=== PATIENT | male | born 1990 | race Caucasian/White ===

== ENCOUNTER → 2018-06-19 | Outpatient (CLI) | payer BC ==
--- NOTE | 2018-06-19 08:21 | XR ---
EXAMINATION TYPE: XR chest 2V DATE OF EXAM: 06/19/2018 COMPARISON: NONE HISTORY: Chest pain TECHNIQUE: Frontal and lateral views of the chest are obtained. FINDINGS: There is no focal air space opacity. No evidence for pneumothorax. No pleural effusion. The cardiac silhouette size is within normal limits. The osseous structures are grossly intact. IMPRESSION: 1. No acute cardiopulmonary process.
[2018-06-19 08:39] LABS: Basophils # (A) 0.1 k/uL (0-0.2); Basophils % (A) 1 %; Eosinophils # (A) 0.2 k/uL (0-0.7); Eosinophils % (A) 3 %; HCT 49.9 % (39.0-53.0); HGB 17.1 gm/dL (13.0-17.5); Lymphocytes # (A) 1.4 k/uL (1.0-4.8); Lymphocytes % (A) 28 %; MCH 31.6 pg (25.0-35.0); MCHC 34.3 g/dL (31.0-37.0); MCV 91.9 fL (80.0-100.0); Mean Platelet Volume 6.7; Monocytes # (A) 0.4 k/uL (0-1.0); Monocytes % (A) 7 %; Neutrophils % (A) 58 %; Platelet Count 211 k/uL (150-450); RBC 5.42 m/uL (4.30-5.90); WBC 5.2 k/uL (3.8-10.6)
[2018-06-19 18:16] LABS: Hepatitis A Antibody IgM Non-Reactive (Non-Reactive); Hepatitis B Core IgM Non-Reactive (Non-Reactive)
== END | disposition home or self-care (01) ==
LOC: LABWHC1 07:21
PROVIDERS: ATTEND Dermatology
DX: L40.0 Psoriasis vulgaris (principal)
CPT/HCPCS: 36415; 71046; 80061; 80074; 82565; 82947; 83615; 84450; 84460; 84520; 85025

== ENCOUNTER 2018-11-03 11:25 | Emergency (ER) | payer BC ==
[2018-11-03 11:35] VITALS: RESP 18
[2018-11-03] MEDS ORDERED: SODIUM CHLORIDE 0.9% 1,000 ML IV STA (12:20)
[2018-11-03] MEDS ORDERED: ONDANSETRON 4 MG/2 ML VIAL IVP STA (12:20)
[2018-11-03] MEDS ORDERED: KETOROLAC 30 MG/ML 1 ML VIAL IVP STA (12:20)
--- NOTE | 2018-11-03 12:31 | ED ---
Abdominal Pain HPI - General Chief Complaint: Abdominal Pain Stated Complaint: Possible appendicitis Time Seen by Provider: 11/03/18 11:48 Source: patient, RN notes reviewed, old records reviewed Mode of arrival: ambulatory Limitations: no limitations - History of Present Illness Initial Comments: 20-year-old male since into ER for complaints of right lower abdominal pain times one week. Sent in from [facility] to rule out appendicitis. Patient reports phuc e associated nausea. Patient reports that he went to see [facility] today because initially thought that his symptoms related to her hernia. He denies any dysuria. He does report some nausea. Normal stools and last bowel movement was this morning. Patient denies any fevers or chills. - Related Data Home Medications Medication Instructions Recorded Confirmed Secukinumab [Cosentyx Pen] 300 mg SQ QMONTH 11/03/18 11/03/18 Allergies Allergy/AdvReac Type Severity Reaction Status Date / Time No Known Allergies Allergy Verified 11/03/18 12:27 Review of Systems ROS Statement: Those systems with pertinent positive or pertinent negative responses have been documented in the HPI. ROS Other: All systems not noted in ROS Statement are negative. Past Medical History Additional Past Medical History / Comment(s): psoriasis History of Any Multi-Drug Resistant Organisms: None Reported Past Surgical History: Orthopedic Surgery Additional Past Surgical History / Comment(s): nasal surgery Past Psychological History: No Psychological Hx Reported Smoking Status: Former smoker Past Alcohol Use History: Occasional Past Drug Use History: None Reported General Exam - General Exam Comments Initial Comments: This is a 28-year-old male. Alert and oriented 3. No distress. Limitations: no limitations General appearance: alert, in no apparent distress Head exam: Present: atraumatic, normocephalic, normal inspection Eye exam: Present: normal appearance, PERRL, EOMI. Absent: scleral icterus, conjunctival injection, periorbital swelling ENT exam: Present: normal exam, mucous membranes moist Neck exam: Present: normal inspection. Absent: tenderness, meningismus, lymphadenopathy Respiratory exam: Present: normal lung sounds bilaterally. Absent: respiratory distress, wheezes, rales, rhonchi, stridor Cardiovascular Exam: Present: regular rate, normal rhythm, normal heart sounds. Absent: systolic murmur, diastolic murmur, rubs, gallop, clicks GI/Abdominal exam: Present: soft, tenderness ( minimal Right lower quadrant tenderness), normal bowel sounds. Absent: distended, guarding, rebound, rigid Extremities exam: Present: normal inspection, full ROM, normal capillary refill. Absent: tenderness, pedal edema, joint swelling, calf tenderness Back exam: Present: normal inspection Neurological exam: Present: alert, oriented X3, CN II-XII intact Psychiatric exam: Present: normal affect, normal mood Course Vital Signs 11/03/18 11:33 Temperature 97.5 F L Pulse Rate 74 Respiratory 18 Rate Blood Pressure 128/83 O2 Sat by Pulse 98 Oximetry Medical Decision Making - Medical Decision Making 28-year-old male presents emergency department today with complaints of right lower quadrant abdominal pain. He reports symptoms have been progressive for the past week. He was sent in by [facility] rule out appendicitis. He reports nausea. He thought his symptoms were initially related to her hernia. At this time Patient has no palpable hernia on exam. He does have some right lower quadrant tenderness at McBurney's point. Patient's labwork was reviewed. Evidence of elevated liver enzymes most likely the setting of fatty liver diseas e. He has no right upper quadrant tenderness. Patient ECC and does show evidence of appendicolith no evidence of fat stranding. Vital signs are within normal limits at this time. I discussed with normal labs and normal vital signs Signs of periappendiceal fat stranding unlikely to be acute appendicitis. Discussed some signs of mesenteric adenitis on CT exam and discussed his elevated liver enzymes. Patient was reevaluated after receiving IV fluids and Toradol. He reports his pain is improved. Everyone she has no rebound tenderness or guarding. Patient informed of these results and discuss the symptoms are likely related to mesenteric adenitis as well as possibility of abdominal wall muscle strain. Discussed strict return parameters including fevers chills nausea or vomiting. Discussed the Patient have close follow-up with his PCP. All questions were answered and return parameters were discussed. - Lab Data Result diagrams: 11/03/18 11:48 11/03/18 11:48 Lab Results 11/03/18 11/03/18 11/03/18 Range/Units 11:48 11:48 11:48 WBC 5.1 (3.8-10.6) k/uL RBC 5.31 (4.30-5.90) m/uL Hgb 16.4 (13.0-17.5) gm/dL Hct 47.9 (39.0-53.0) % MCV 90.2 (80.0-100.0) fL MCH 30.9 (25.0-35.0) pg MCHC 34.2 (31.0-37.0) g/dL RDW 13.1 (11.5-15.5) % Plt Count 218 (150-450) k/uL Neutrophils % 63 % Lymphocytes % 24 % Monocytes % 7 % Eosinophils % 3 % Basophils % 1 % Neutrophils # 3.2 (1.3-7.7) k/uL Lymphocytes # 1.2 (1.0-4.8) k/uL Monocytes # 0.4 (0-1.0) k/uL Eosinophils # 0.2 (0-0.7) k/uL Basophils # 0.0 (0-0.2) k/uL Sodium 137 (137-145) mmol/L Potassium 4.4 (3.5-5.1) mmol/L Chloride 104 (98-107) mmol/L Carbon Dioxide 27 (22-30) mmol/L Anion Gap 6 mmol/L BUN 17 (9-20) mg/dL Creatinine 1.12 (0.66-1.25) mg/dL Est GFR (CKD-EPI)AfAm >90 (>60 ml/min/1.73 sqM) Est GFR (CKD-EPI)NonAf 89 (>60 ml/min/1.73 sqM) Glucose 90 (74-99) mg/dL Calcium 9.3 (8.4-10.2) mg/dL Total Bilirubin 0.8 (0.2-1.3) mg/dL AST 65 H (17-59) U/L ALT 152 H (21-72) U/L Alkaline Phosphatase 52 (38-126) U/L Total Protein 7.1 (6.3-8.2) g/dL Albumin 4.5 (3.5-5.0) g/dL Amylase 41 (30-110) U/L Lipase 65 (23-300) U/L Urine Color Light Yellow Urine Appearance Clear (Clear) Urine pH 5.5 (5.0-8.0) Ur Specific [place] 1.008 (1.001-1.035) Urine Protein Negative (Negative) Urine Glucose (UA) Negative (Negative) Urine Ketones Negative (Negative) Urine Blood Negative (Negative) Urine Nitrite Negative (Negative) Urine Bilirubin Negative (Negative) Urine Urobilinogen <2.0 (<2.0) mg/dL Ur Leukocyte Esterase Negative (Negative) - Radiology Data Radiology results: report reviewed Patient CT shows linear hyperdense material within the appendix could represent multiple smaller appendicoliths or prior ingested radiopaque material. However there is no periappendiceal fat stranding to suggest acute appendicitis. A few prominent right lower quadrant lymph nodes can be seen mesenteric adenitis. Hepatic steatosis and hepatis liniment was noted. No intrahepatic biliary ductal dilation. Liver is enlarged. No cholelithiasis noted. Disposition Clinical Impression: RLQ abdominal pain, Mesenteric adenitis Disposition: HOME SELF-CARE Condition: Good Instructions (If sedation given, give patient instructions): Abdominal Pain (ED), Mesenteric Adenitis (ED) Additional Instructions: Patient advised to follow-up with primary care physician within the next 1-2 days. Motrin and Tylenol for pain. Recommended using a stool softener to promote bowel movements for the next few days. Return to emergency department if any alarming signs or symptoms occur including worsening pain, Fevers, chills, nausea vomiting. Is patient prescribed a controlled substance at d/c from ED?: No Referrals: Philip Floyd MD [Primary Care Provider] - 1-2 days Time of Disposition: 14:01
[2018-11-03 12:37] LABS: Appearance,Urine Clear (Clear); Bilirubin,Urine Negative (Negative); Blood,Urine Negative (Negative); Color,Urine Light Yellow; Glucose,Urine (UA) Negative (Negative); Ketones,Urine Negative (Negative); Leukocyte Esterase,Urine Negative (Negative); Nitrite,Urine Negative (Negative); PH, Urine 5.5 (5.0-8.0); Protein,Urine Negative (Negative); Specific Gravity,Urine 1.008 (1.001-1.035); Urobilinogen,Urine <2.0 mg/dL (<2.0)
[2018-11-03 12:44] LABS: Basophils % (A) 1 %; Eosinophils # (A) 0.2 k/uL (0-0.7); Eosinophils % (A) 3 %; HCT 47.9 % (39.0-53.0); HGB 16.4 gm/dL (13.0-17.5); Lymphocytes # (A) 1.2 k/uL (1.0-4.8); Lymphocytes % (A) 24 %; MCH 30.9 pg (25.0-35.0); MCHC 34.2 g/dL (31.0-37.0); MCV 90.2 fL (80.0-100.0); Mean Platelet Volume 6.3; Monocytes # (A) 0.4 k/uL (0-1.0); Monocytes % (A) 7 %; Neutrophils # (A) 3.2 k/uL (1.3-7.7); Neutrophils % (A) 63 %; Platelet Count 218 k/uL (150-450); RBC 5.31 m/uL (4.30-5.90); RDW 13.1 % (11.5-15.5); WBC 5.1 k/uL (3.8-10.6)
[2018-11-03 12:48] LABS: ALT 152 U/L (21-72); AST 65 U/L (17-59); Albumin 4.5 g/dL (3.5-5.0); Alkaline Phosphatase 52 U/L (38-126); Amylase 41 U/L (30-110); Anion Gap 6 mmol/L; Blood Urea Nitrogen 17 mg/dL (9-20); Calcium 9.3 mg/dL (8.4-10.2); Carbon Dioxide 27 mmol/L (22-30); Chloride 104 mmol/L (98-107); Glucose 90 mg/dL (74-99); Lipase 65 U/L (23-300); Potassium 4.4 mmol/L (3.5-5.1); Sodium 137 mmol/L (137-145); Total Bilirubin 0.8 mg/dL (0.2-1.3); Total Protein 7.1 g/dL (6.3-8.2)
--- NOTE | 2018-11-03 13:36 | CT ---
EXAMINATION TYPE: CT abdomen pelvis w con DATE OF EXAM: 11/03/2018 COMPARISON: None HISTORY: RLQ pain CT DLP: 1911.5 mGycm Automated exposure control for dose reduction was used. TECHNIQUE: Helical acquisition of images was performed from the lung bases through the pelvis. CONTRAST: Performed without Oral Contrast and with IV Contrast, patient injected with 100 mL of Isovue 300. FINDINGS: LUNG BASES: No significant abnormality is appreciated. LIVER/GB: Hepatic parenchyma is diffusely hypoattenuated in comparison to that of the spleen, most co mmonly seen in hepatic steatosis. This finding limits evaluation for hepatic masses. No gross evidenc e of hepatic mass is seen. No intrahepatic biliary ductal dilatation. The liver is enlarged. No dorothea lithiasis. PANCREAS: No significant abnormality is seen. SPLEEN: The spleen is enlarged measuring 14.1 cm in craniocaudal dimension. ADRENALS: No significant abnormality is seen. KIDNEYS: There is a left prominent, Martín. Otherwise the kidneys are of symmetric enhancement. No hy dronephrosis. FREE AIR: No free air is visualized. REPRODUCTIVE ORGANS: No significant abnormality is seen URINARY BLADDER: No significant abnormality is seen. ADENOPATHY: No greater than 1 cm short axis lymph node within the abdomen or pelvis. Clustered right lower quadrant prominent lymph nodes are discussed below. OSSEOUS STRUCTURES: Mild degenerative changes of the spine are seen. BOWEL: The appendix is within normal limits of size and without periappendiceal fat stranding howeve r high density linear material is seen within the appendix as well as multiple foci of air. Clustered right lower quadrant lymph nodes on coronal series 202 image 51 through 54 measuring up to 8 mm. No dilated large or small bowel is seen. IMPRESSION: 1. LINEAR HYPERDENSE MATERIAL WITHIN THE APPENDIX COULD REPRESENT MULTIPLE SMALL APPENDICOLITHS OR NV IOR INGESTED RADIOPAQUE MATERIAL. HOWEVER THERE IS NO PERIAPPENDICEAL FAT STRANDING TO SUGGEST ACUTE APPENDICITIS. FEW PROMINENT RIGHT LOWER QUADRANT LYMPH NODES CAN BE SEEN IN MESENTERIC ADENITIS. 2. HEPATIC STEATOSIS. 3. HEPATOSPLENOMEGALY.
[2018-11-03 14:18] VITALS: BP 138/78; PULSE 61; TEMP 97.6
== END 2018-11-03 14:19 | disposition home or self-care (01) ==
LOC: EC 11:25
DX: I88.0 Nonspecific mesenteric lymphadenitis (principal); Z87.891 Personal history of nicotine dependence
CPT/HCPCS: 36415; 80053; 82150; 83690; 85025; 81003; 74177; 99284; 96374; 96375; 96361; J2405; J1885; Q9967

== ENCOUNTER 2019-10-12 11:51 | Emergency (ER) | payer BC, OTHER ==
[2019-10-12 11:58] VITALS: BP 128/75; PULSE 78; RESP 18; TEMP 98.1
[2019-10-12] MEDS ORDERED: LIDOCAINE 1% INJ 10MG/ML (20 ML MDV) SQ ONE (12:19)
--- NOTE | 2019-10-12 12:24 | ED ---
Wound/Laceration HPI - General Chief Complaint: Wound/Laceration Stated Complaint: [facility] - hand lac Time Seen by Provider: 10/12/19 12:09 Source: patient, RN notes reviewed Mode of arrival: ambulatory Limitations: no limitations - History of Present Illness Initial Comments: 29-year-old male presents emergency Department chief a laceration to his left hand. Patient states that he cut on tool at work. Patient states his last tetanus was just updated 2012. He has full range of motion of his left hand no paresthesias no decreased range of motion of his fifth digit. - Related Data Home Medications Medication Instructions Recorded Confirmed Secukinumab [Cosentyx Pen] 300 mg SQ QMONTH 11/03/18 11/03/18 Allergies Allergy/AdvReac Type Severity Reaction Status Date / Time No Known Allergies Allergy Verified 10/12/19 11:53 Review of Systems ROS Statement: Those systems with pertinent positive or pertinent negative responses have been documented in the HPI. ROS Other: All systems not noted in ROS Statement are negative. Past Medical History Additional Past Medical History / Comment(s): psoriasis History of Any Multi-Drug Resistant Organisms: MRSA Date of last positivie culture/infection: 2013 MDRO Source:: r thigh Past Surgical History: Orthopedic Surgery Additional Past Surgical History / Comment(s): nasal surgery Past Psychological History: No Psychological Hx Reported Smoking Status: Former smoker Past Alcohol Use History: Occasional Past Drug Use History: None Reported General Exam Limitations: no limitations General appearance: alert, in no apparent distress Head exam: Present: atraumatic, normocephalic, normal inspection Eye exam: Present: normal appearance, PERRL, EOMI. Absent: scleral icterus, conjunctival injection, periorbital swelling ENT exam: Present: normal exam, mucous membranes moist Neck exam: Present: normal inspection, full ROM. Absent: tenderness, meningismus, lymphadenopathy Respiratory exam: Present: normal lung sounds bilaterally. Absent: respiratory distress, wheezes, rales, rhonchi, stridor Cardiovascular Exam: Present: regular rate, normal rhythm, normal heart sounds. Absent: systolic murmur, diastolic murmur, rubs, gallop, clicks Extremities exam: Present: other (left hand medial aspect just proximal to the fifth digit there is a 3 cm laceration. Full range of motion of all digits neurovascular intact) Course Vital Signs 10/12/19 11:54 Temperature 98.1 F Pulse Rate 78 Respiratory 18 Rate Blood Pressure 128/75 O2 Sat by Pulse 100 Oximetry Procedures - Laceration Laceration #1 Consent Obtained: verbal consent Site: hand (Left) Size (cm): 3 Description: linear Depth: simple, single layer Anesthetic Used: lidocaine 1%, without epi Anesthesia Technique: local infiltration Amount (mls): 5 Pre-repair: wound explored, irrigated extensively, deep structures intact Type of Sutures: nylon Size of Sutures: 4-0 Number of Sutures: 5 Technique: simple, interrupted Patient Tolerated Procedure: well, no complications Medical Decision Making - Medical Decision Making Patient laceration was thoroughly cleaned, closed using sutures and no comp patients return parameters were discussed wound care instructions given. Disposition Clinical Impression: Laceration of left hand Disposition: HOME SELF-CARE Condition: Stable Instructions (If sedation given, give patient instructions): Laceration (ED), Care For Your Stitches (DC) Additional Instructions: Please return to the Emergency Department if symptoms worsen or any other concerns. Is patient prescribed a controlled substance at d/c from ED?: No Referrals: Philip Floyd MD [Primary Care Provider] - 1-2 days Time of Disposition: 12:40
[2019-10-12] MEDS ORDERED: DIPH,PERTUS(ACELL)TETVAC-LF 0.5 ML VIAL IM ONE (12:26)
== END 2019-10-12 13:41 | disposition home or self-care (01) ==
LOC: EC 11:51
DX: S61.412A Laceration without foreign body of left hand, initial encounter (principal); Z23 Encounter for immunization; Z87.891 Personal history of nicotine dependence; W27.8XXA Contact with other nonpowered hand tool, initial encounter; Y92.69 Other specified industrial and construction area as the place of occurrence of the external cause; Y99.0 Civilian activity done for income or pay
CPT/HCPCS: 90715; 99282; 12002; 90471; J2001

== ENCOUNTER → 2020-03-28 | Outpatient (CLI) | payer OTHER, BC | END | disposition home or self-care (01) | LOC: LABWHC1 10:01 | PROVIDERS: ATTEND Emergency Medicine | DX: Z20.828 Contact with and (suspected) exposure to other viral communicable diseases (principal) | CPT/HCPCS: U0003; C9803 ==

== ENCOUNTER → 2022-05-28 | Outpatient (CLI) | payer BC ==
--- NOTE | 2022-05-28 14:50 | US ---
EXAMINATION TYPE: US abdomen complete DATE OF EXAM: 05/28/2022 COMPARISON: CT CLINICAL HISTORY: R74.8 ABNORMAL LEVELS OF OTHER SERUM ENZYMES. Abnormal LFT's TECHNIQUE: Multiple sonographic images of the abdomen are obtained. FINDINGS: EXAM MEASUREMENTS: Liver Length: 17.7 cm. Normal less than 15.5 cm. Gallbladder Wall: 0.2 cm CBD: 0.2 cm Spleen: 14.5 cm. Normal less than 12.5 cm. Right Kidney: 12.6 x 4.2 x 4.9 cm Left Kidney: 13.3 x 5.1 x 4.2 cm ORE GRADER NOTES: Pancreas: wnl, tail obscured by overlying bowel gas Liver: Heterogeneous, difficult to penetrate, mildly enlarged. Gallbladder: wnl Evidence for sonographic Srinivasan's sign: No CBD: wnl Spleen: Enlarged Right Kidney: wnl Left Kidney: wnl Upper IVC: wnl Abd Aorta: wnl IMPRESSION: 1. Hepatosplenomegaly.
== END | disposition home or self-care (01) ==
LOC: RADUSWWP 12:43
PROVIDERS: ATTEND Internal Medicine Gastroenterology
DX: R74.8 Abnormal levels of other serum enzymes (principal)
CPT/HCPCS: 76700